=== PATIENT | female | born 1935 | race African-American/Black ===

== ENCOUNTER 2022-10-29 11:09 | Emergency (ER) | payer OTHER ==
[~2022-10-29] VITALS: Ht 167.6 cm; Wt 85.0 kg
[2022-10-29 11:17] VITALS: O2SAT 96
[2022-10-29] MEDS ORDERED: insulin (11:17)
[2022-10-29] MEDS ORDERED: lasix (11:17)
[2022-10-29] MEDS ORDERED: aspirin (11:17)
[2022-10-29] MEDS ORDERED: SODIUM CHLORIDE 0.9% 1,000 ML IV ONE (11:45)
[2022-10-29 13:28] LABS: BASOPHILS % 0.6 % (0.0-2.0); HEMATOCRIT. 26.2 % (36.0-48.0); HEMOGLOBIN. 8.6 g/dL (12.0-16.0); LYMPHOCYTES % 16.1 % (20.0-50.0); MEAN CORPUSCULAR HEMOGLOBIN 30.1 pg (28.0-32.0); MEAN CORPUSCULAR HGB CONC 32.8 g/dL (31.0-37.0); MEAN CORPUSCULAR VOLUME 91.9 fL (81.0-99.0); MEAN PLATELET VOLUME 7.3 fl (7.4-10.4); MONOCYTES % 8.7 % (2.0-8.0); NEUTROPHILS % 74.6 % (40.0-76.0); PLATELET 132 x1000/uL (130-400); RED BLOOD CELL COUNT 2.85 mill/uL (4.2-5.4); RED CELL DISTRIBUTION WIDTH 15.4 % (11.6-14.6); WHITE BLOOD COUNT 3.3 x1000/uL (4.5-11.0)
[2022-10-29 13:41] LABS: CHLORIDE 117 mEq/L (98-107); INDEX HEMOLYSI 1 (1-3); INDEX ICTERIC 1 (1-4); INDEX LIPEMIC 1 (1-3); SODIUM 142 mEq/L (136-145)
[2022-10-29 13:50] LABS: ALANINE AMINOTRANSFERASE 21 IU/L (13-61); ALBUMIN 2.5 g/dL (3.4-5.0); ASPARTATE AMINOTRANSFERASE 30 IU/L (15-37); BILIRUBIN TOTAL 1.1 mg/dL (0.1-1.0); CALCIUM 6.3 mg/dL (8.5-10.1); CARBON DIOXIDE 22 mEq/L (21-32); CREATININE 1.4 mg/dL (0.6-1.3); GLUCOSE 66 mg/dL (70-105); PROTEIN TOTAL 6.2 g/dL (6.0-8.3); TROPONIN I HIGH SENSITIVITY 40 ng/L (<54); UREA NITROGEN BLOOD 27 mg/dL (7-21)
[2022-10-29] MEDS ORDERED: DEXT 5%/0.9% NACL 500 ML IV ONE (14:30)
[2022-10-29 14:42] LABS: INR 1.4; PROTHROMBIN TIME 14.3 sec (9.6-11.0)
[2022-10-29] MEDS ORDERED: KCL 10MEQ/50ML PREMIX 50 ML IV ONE (16:00)
[2022-10-29 16:43] VITALS: BP 171/83; PULSE 82; RESP 17; TEMP 98.5
== END 2022-10-29 17:09 | disposition short-term general hospital (02) ==
LOC: ER 11:09 → CANBEDREQ 14:42 → ER 17:09
DX: R62.7 Adult failure to thrive (principal); U07.1 COVID-19; N28.9 Disorder of kidney and ureter, unspecified; I50.9 Heart failure, unspecified; E11.9 Type 2 diabetes mellitus without complications
CPT/HCPCS: 99285; 96360; 71045; 96361; 87426; 80053; 82962; 83605; 85025; 85610; 87040; 84484; 36415; 84145; 93005; J7042; J7030; C9803; J3480